=== PATIENT | female | born 1990 | race Hispanic/Latino ===

== ENCOUNTER 2021-06-01 00:52 | Emergency (ER) | payer OTHER ==
[~2021-06-01] VITALS: Ht 160 cm; Wt 77.1 kg
[2021-06-01 03:54] VITALS: BP 111/68
== END 2021-06-01 03:55 | disposition home or self-care (01) ==
LOC: EDH 00:52
DX: J10.1 Influenza due to other identified influenza virus with other respiratory manifestations (principal); J45.909 Unspecified asthma, uncomplicated; Z20.822 Contact with and (suspected) exposure to COVID-19
CPT/HCPCS: 87635; 87804 ×2; 99283; C9803

== ENCOUNTER 2021-08-06 04:18 | Emergency (ER) | payer OTHER ==
[~2021-08-06] VITALS: Ht 157.5 cm; Wt 77.1 kg
[2021-08-06 04:19] VITALS: BP 128/81
[2021-08-06] MEDS ORDERED: FLUT16H NASAL (05:34)
[2021-08-06] MEDS ORDERED: OXYM30SP27 NS (05:34)
== END 2021-08-06 05:54 | disposition home or self-care (01) ==
LOC: EDH 04:18
DX: J06.9 Acute upper respiratory infection, unspecified (principal); J32.9 Chronic sinusitis, unspecified; Z20.822 Contact with and (suspected) exposure to COVID-19
CPT/HCPCS: 87635; 87804 ×2; 87880; 99283; C9803